=== PATIENT | male | born 1970 | race Caucasian/White ===

== ENCOUNTER 2022-10-27 12:16 | Inpatient (IN) | payer OTHER ==
[~2022-10-27] VITALS: Ht 177.8 cm; Wt 84.9 kg
[2022-10-27 12:52] LABS: BASOPHILS ABSOLUTE AUTO 0.07 K/mm3 (0.00-0.23); BASOPHILS PERCENT AUTO 1 % (0-2); EOSINOPHILS ABSOLUTE AUTO 0.03 K/mm3 (0.00-0.68); EOSINOPHILS PERCENT AUTO 1 % (0-6); Hematocrit 43.2 % (37.0-53.0); Hemoglobin 15.7 g/dL (13.5-17.5); IMMATURE GRAN ABSOLUTE AUTO 0.07 K/mm3 (0.00-0.10); IMMATURE GRAN PERCENT AUTO 1 % (0-1); LYMPHOCYTES ABSOLUTE AUTO 1.14 K/mm3 (0.84-5.20); LYMPHOCYTES PERCENT AUTO 18 % (21-46); MONOCYTES ABSOLUTE AUTO 0.51 K/mm3 (0.16-1.47); MONOCYTES PERCENT AUTO 8 % (4-13); Mean Corpuscular HGB 30.7 pg (26.0-34.0); Mean Corpuscular HGB Conc 36.3 g/dL (31.5-36.5); Mean Corpuscular Volume 84 fL (80-100); Mean Platelet Volume 10.9 fL (9.1-12.4); NEUTROPHILS ABSOLUTE AUTO 4.47 K/mm3 (1.96-9.15); NEUTROPHILS PERCENT AUTO 71 % (41-73); Platelet Count 313 K/mm3 (150-400); Red Blood Cell Count 5.12 M/mm3 (4.30-5.90); White Blood Cell Count 6.29 K/mm3 (4.00-11.30)
[2022-10-27 13:22] LABS: Albumin, Blood 3.9 g/dL (3.4-5.0); Bilirubin, Total 0.6 mg/dL (0.1-1.0); Bun/Creatinine Ratio 24.5 (12.0-20.0); Calcium, Blood 9.6 mg/dL (8.5-10.1); Creatinine, Blood 0.61 mg/dL (0.60-1.20); Globulin, Blood 3.8 g/dL (2.2-4.0); Potassium, Blood 4.1 mmol/L (3.5-5.5); Total Protein, Blood 7.7 g/dL (6.4-8.2)
[2022-10-27 14:38] LABS: Magnesium, Blood 2.4 mg/dL (1.6-2.4)
[2022-10-27 14:39] LABS: Thyroid Stimulating Hormone 1.08 uIU/mL (0.360-4.800)
[2022-10-27 14:52] LABS: Source, Urine Clean Catch
[2022-10-27 14:59] LABS: Appearance, Urine Clear (Clear); Bilirubin, Urine Neg (Neg); Blood, Urine Neg (Neg); Color, Urine Pale Yellow (P-Yellow); Glucose Qualitative, Urine 4+ (Neg); Ketones, Urine 4+ (Neg); Leukocyte Esterase, Urine Neg (Neg); Nitrite, Urine Neg (Neg); Protein, Urine Neg (Neg); Urobilinogen, Urine NORM (Normal)
[2022-10-27 15:46] LABS: Base Excess Venous -11.5 mmol/L; Bicarbonate Venous 15.6 mmol/L (24.0-30.0); PCO2 Venous 38.1 mmHg (38-42)
[2022-10-27 15:47] LABS: pH Blood Venous 7.23 (7.34-7.37)
--- NOTE | 2022-10-27 19:08 | NUR ---
RECEIVED REPORT FROM ER AROUND 1849 ON PATIENT. PATIENT ARRIVED TO ICU. REPORT GIVEN TO ASSUMING INTERNAL RECRUITER NURSE.
--- NOTE | 2022-10-27 19:15 | NUR ---
ASSUMPTION OF CARE PT RESTING IN BED. HE IS RECEIVING KCL AT THIS TIME. HE IS A&OX4 AND PROVIDES ADMISSION INFORMATION. HE DENIES PAIN AT THIS TIME WITH ONLY COMPLAINT OF HEARTBURN. PT USED URINAL INDEPENDENTLY WITH 900ML PALE YELLOW OUTPUT. VSS AT THIS TIME. BED IN LOW POSITION AND CALL LIGHT WITHIN REACH. SEE SHIFT ASSESSMENT.
[2022-10-27 21:51] LABS: Bun/Creatinine Ratio 18.3 (12.0-20.0); Calcium, Blood 8.6 mg/dL (8.5-10.1); Creatinine, Blood 0.6 mg/dL (0.60-1.20); Potassium, Blood 3.9 mmol/L (3.5-5.5)
--- NOTE | 2022-10-27 22:38 | NUR ---
UPDATE HOSPITALIST NOTIFIED OF 2100 LABS. NEW ORDERS BEING PLACED BY DR PERDOMO.
[2022-10-28 03:57] LABS: CHOL/HDL RATIO 7.5; Cholesterol 269 mg/dL (50-200); HDL Cholesterol 36 mg/dL (>39); Low Density Lipoprotein Chol 180 mg/dL (0-110); Triglycerides 264 mg/dL (30-160); Very Low Density Lipoprot Chol 52 mg/dL (6-32)
[2022-10-28 04:40] LABS: Glucose, Blood 255 mg/dL (70-99)
--- NOTE | 2022-10-28 06:04 | NUR ---
SHIFT SUMMARY PT IS RECEIVING NS 125ML/HR. INSULIN DRIP HAS BEEN OFF SINCE YESTERDAY BEFORE ARRIVAL TO ICU. PT RECEIVED INSULIN GLARGINE PER EMAR AND PLAN TO BEGIN HIGH SLIDING SCALE THIS AM. GLUCOSE CHECKS NOW AC&HS. PT HAS SLEPT THROUGH MOST OF THE NIGHT. HE IS A&OX4, STANDBY ASSIST TO STAND AT BEDSIDE. LUNGS ARE CLEAR THROUGHOUT. NSR ON MONITOR WITH RATE 70S. BP STABLE. BOWEL TONES HYPOACTIVE, ABDOMEN SOFT. PT VOIDED WITH URINAL AND HAD 900ML PALE YELLOW OUTPUT. BED IN LOW POSITION AND CALL LIGHT WITHIN REACH. STATUS CHANGED TO MEDICAL.
--- NOTE | 2022-10-28 09:46 | NUR ---
ASSUMED CARE REPORT FROM MONET RAMIREZ AT 0700. PT RESTING IN BED. MED s TELE. A&OX 4. DENIES NEEDS OR COMPLAINTS. LUNGS CLEAR. SPEAKING IN FULL SENTENCES. INDEPENDENT IN ROOM. ABD ROUND, SOFT, NON TENDER. BT X 4. TOLERATED PO FLUIDS AND MEAL WELL. DENIES N/V. WILL CONTINUE TO MONITOR UNTIL TRANSFER TO MEDICAL FLOOR.
--- NOTE | 2022-10-28 10:10 | NUR ---
TRANSFER TO MEDICAL FLOOR REPORT TO LEONCIO RAMIREZ. PT TRANSFERRED TO 336. ALL BELONGINGS SENT c PT.
--- NOTE | 2022-10-28 17:03 | NUR ---
SHIFT SUMMARY PT AXO, PLEASANT AND COOPERATIVE WITH CARE. UP AD MAYRA WITH STEADY GAIT. VSS. CBG ACHS, SEE LABS, MEDICATED PER EMAR. PT EDUCATED ON HOW TO DOSE INSULIN BASED ON HIGH CORRECTION SCALE, HOW TO DRAW UP INSULIN AND ADMINISTER INSULIN. THIS NURSE DISCUSSED ADA DIET, INTRODUCED IDEA OF CARB COUNTING, SIGNS AND SYMPTOMS OF HYPER AND HYPOGLYCEMIA, ETC. PT EAGER TO LEARN AND ASKS QUESTIONS APPROPRIATELY. IV PATENT AND SALINE LOCKED. BED IN LOW POSITION, CALL LIGHT WITHIN REACH. PT DENIES PAIN AND SOB. REPORTS FEELING IMPROVED.
--- NOTE | 2022-10-29 04:05 | NUR ---
SHIFT SUMMARY NOC PT A/O X 4. PLEASANT AND COOPERATIVE WITH CARE. INDEPENDENT IN ROOM. NEWL DX OF DM2 PT RECEIVED EDUCATION ON DISEASE PROCESS AND INSULIN ADMINISTRATION. PT HS CBG WAS 272 AND 2 UNITS GIVEN ALONG WITH 20 UNITS OF LANTUS. PT EAGER TO LEARN MORE ABOUT DISEASE PROCESS AND DAY SHIFT PRINTED OUT INFORMATION PACKET. PT IS EXPECTED TO DISCHARGE TODAY PENDING BLOOD GLUCOSE CONTROL. PT IS CURRENTLY RESTING WITH BED IN LOWEST POSITION, AND CALL LIGHT WITHIN REACH. TM.
[2022-10-29 06:21] LABS: Albumin, Blood 2.9 g/dL (3.4-5.0); Anion Gap 10 mmol/L (6-16); Blood Urea Nitrogen 11 mg/dL (8-24); Bun/Creatinine Ratio 23.6 (12.0-20.0); CO2, Blood 21 mmol/L (21-32); Calcium, Blood 8.7 mg/dL (8.5-10.1); Chloride, Blood 104 mmol/L (98-108); Creatinine, Blood 0.47 mg/dL (0.60-1.20); Glomerular Filtration Rate 127 (60-); Glucose, Blood 200 mg/dL (70-99); Potassium, Blood 3.1 mmol/L (3.5-5.5); Sodium, Blood 135 mmol/L (136-145)
--- NOTE | 2022-10-29 12:23 | NUR ---
SPOKE TO DR SALEH- PT IS BEING DISCHARGED HOME TODAY ON INSULIN. WENT OVER THE USE OF CORRECTION SCALE INSULIN AND THE PT INDICATED THE CORRECT DOSE FOR HIS BLOOD SUGAR READING. THE PT DEMONSTRATED NEEDLE APPLICATION TO THE INSILIN PEN AND PRIMED THE NEEDLE APPROPRIATELY, DOSE VERIFIED WITH ADDITIONAL RN PER POLICY. WHEN PT WENT TO SELF INJECT HE APPEARED TO NOT PUSH HARD ENOUGH FOR THE NEEDLE GUARD TO PULL BACK PRIOR TO STARTING TO PUSH THE PLUNGER, PT WAS EDUCATED AND DID ADVANCE THE NEEDLE. THERE WAS A DROP OF INSULIN ON HIS ABDOMEN AFTER THE INJECTION (THE PT DID HOLD THE PEN FOR A 10 COUNT AFTER INJECTING) UNCERTAIN IF PT RECIEVED HIS FULL DOSE OF INSULIN. SPOKE TO DR SALEH SHE IS GOING TO PLACED A CS ORDER FOR TREATMENT, BG TO BE RECHECKED IN 1 HOUR AND MEDICATED ACCORDING TO CORECTION SCALE.
[2022-10-29] MEDS ORDERED: LOSA25 PO (12:37)
[2022-10-29] MEDS ORDERED: INSULIN GL100 UNIT/4 SC (12:38)
[2022-10-29] MEDS ORDERED: HUMALOG KW100 UNIT/1 SC (12:39)
[2022-10-29] MEDS ORDERED: INSULIN LI100 UNIT/6 SC (12:40)
--- NOTE | 2022-10-29 14:27 | NUR ---
DISCHARGE NOTE- PT WAS GIVEN VERBAL AND WRITTEN DISCHARGE INSTRUCTIONS AND ACKNOWLEDGED UNDERSTANDING OF THEM. PT WAS ABLE TO DEMONSTRATE THE PROPER PROCEDURE FOR ADMINISTERING INSULIN. SPOKE TO [facility] THEY WILL BE FILLING THE MEDICATIONS SENT OVER. IV DC'D PRIOR TO DISCHARGE BY THE JIG FILLER. PT REFUSED WC AND WAS ESCORTED OUT ON FOOT WITH HIS VISITOR. NO S&S OF DISTRESS NOTED AT THE TIME OF DISCHARGE.
== END 2022-10-29 14:18 | disposition home or self-care (01) | DRG 639 ==
LOC: ER 12:16 → ICUW 17:20 → ICUE 18:23 → MEDS 10-28 10:12
PROVIDERS: Internal Medicine; Physician Assistant; Student in an Organized Health Care Education/Training Program; ADMIT Hospitalist
DX: E11.10 Type 2 diabetes mellitus with ketoacidosis without coma (principal); E87.6 Hypokalemia; I10 Essential (primary) hypertension; E78.5 Hyperlipidemia, unspecified; E11.65 Type 2 diabetes mellitus with hyperglycemia; R63.1 Polydipsia; F17.210 Nicotine dependence, cigarettes, uncomplicated; Z23 Encounter for immunization; Z88.0 Allergy status to penicillin; Z88.5 Allergy status to narcotic agent; Z98.890 Other specified postprocedural states
CPT/HCPCS: 36415; 71046; 80048; 80053; 80061; 80069; 81003; 82803; 82947; 83036; 83690; 83735; 83880; 83930; 84100; 84443; 84484; 85025; 90686; 93005; 93010; 96361; 96365; 96366; 99285-25; A9270; J1650; J1815; J3480; J7030